=== PATIENT | female | born 1960 | race Caucasian/White ===

== ENCOUNTER 2025-04-03 22:29 | Emergency (ER) | payer OTHER ==
[~2025-04-03] VITALS: Ht 172.7 cm; Wt 116.0 kg
[2025-04-03] MEDS ORDERED: COZAAR25 MG PO (22:44)
[2025-04-03] MEDS ORDERED: DIPHTH,PERTUSS(ACELL),TET VAC 0.5 ML SYRINGE IM ONE (22:45)
[2025-04-03] MEDS ORDERED: LIDOCAINE/RACEPINEP/TETRACAINE 3 ML SYR TOP ONE (22:45)
[2025-04-03] MEDS ORDERED: LEVOTHYROXINE50 MC1 PO (22:45)
[2025-04-03] MEDS ORDERED: LIDOCAINE HCL 4% 50 ML BTL TOP ONE (23:00)
[2025-04-03] MEDS ORDERED: TETANUS-DIPHTHERIA TOXOIDS/PF 0.5 ML VIAL ONE (23:12)
[2025-04-04 00:55] VITALS: BP 114/63
== END 2025-04-04 00:55 | disposition home or self-care (01) ==
LOC: ED 22:29
DX: S81.812A Laceration without foreign body, left lower leg, initial encounter (principal); S80.811A Abrasion, right lower leg, initial encounter; S40.811A Abrasion of right upper arm, initial encounter; S60.419A Abrasion of unspecified finger, initial encounter; W10.9XXA Fall (on) (from) unspecified stairs and steps, initial encounter; I10 Essential (primary) hypertension; E03.9 Hypothyroidism, unspecified; Z88.5 Allergy status to narcotic agent; Z79.890 Hormone replacement therapy; Z79.899 Other long term (current) drug therapy; Z23 Encounter for immunization
CPT/HCPCS: 12034; 73590; 90471; 90715; 99283-25